=== PATIENT | female | born 1960 | race Caucasian/White ===

== ENCOUNTER 2016-03-19 06:34 | Emergency (ER) | payer BC, OTHER ==
[~2016-03-19] VITALS: Ht 151.1 cm; Wt 98.0 kg
[2016-03-19 06:38] VITALS: TEMP 36.7; O2SAT 96; Ht 151.1 cm; Wt 98.0 kg
[2016-03-19] MEDS ORDERED: LISI-461 PO (06:54)
--- NOTE | 2016-03-19 07:06 | DIAGNOSTIC IMAGING REPORT ---
RIGHT ANKLE 3 VIEWS HISTORY: Right ankle pain. fall Right COMPARISON: None. FINDINGS: There is an oblique fracture within the distal right fibula which demonstrates up to 2 mm of lateral displacement. The ankle mortise remains intact. There is lateral soft tissue swelling. 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 Plantar heel spur. No radiopaque foreign bodies. IMPRESSION: Mildly displaced right distal fibular fracture. Electronically signed by: Giovanny Watt M.D. 03/19/2016 7:05 AM Dictated Date/Time: 03/19/2016 7:04 AM
[2016-03-19] MEDS ORDERED: OXYC1TAB3 PO (07:09)
[2016-03-19 07:40] VITALS: BP 156/83; PULSE 82
--- NOTE | 2016-03-19 15:26 | EMERGENCY ROOM VISIT NOTE ---
History Report prepared by Hernan: Scott Moss Under the Supervision of: Dr. Alan Cheek M.D. First contact with patient: 06:44 Chief Complaint: ANKLE PAIN Stated Complaint: TWISTED RIGHT ANKLE AT WORK History of Present Illness The patient is a 55 year old female who presents to the Emergency Room with complaints of persistent right ankle pain s/p fall earlier this morning. The patient was going down a ramp at work when she slipped and twisted the ankle. The pain is rated 5/10 in severity. She broke the same ankle years ago. She believes that she was treated by [facility]. The patient did not injury any other part of her body during the fall. Patient denies LOC, headache , fevers, chills, diaphoresis, visual changes, neck pain, chest pain, breathing difficulties, nausea, vomiting, abdominal pain, back pain, melena, hematochezia , urinary symptoms, numbness, weakness, lymphadenopathy, rash, or other complaints. Source of History: patient Onset: earlier this morning Position: ankle (right) Symptom Intensity: 5/10 Quality: other (ankle injury s/p fall) Timing: other (persistent) Review of Systems See HPI for pertinent positives and negatives. A total of ten systems were reviewed and were otherwise negative. Past Medical & Surgical Medical Problems: (1) Ankle fracture, right Family History No pertinent family history Social History Smoking Status: Never Smoker Occupation Status: employed Current/Historical Medications Scheduled Lisinopril (Zestril), 10 MG PO DAILY Scheduled PRN Oxycodone Ir (Roxicodone Ir), 1-2 TAB PO Q4H PRN for Pain Allergies Coded Allergies: Naproxen (Verified Allergy, Intermediate, SWELLS UP, 06/05/14) Uncoded Allergies: NAPROXEN (Allergy, Unknown, 05/22/03) Physical Exam Vital Signs Date Time Temp Pulse Resp B/P Pulse Ox O2 Delivery O2 Flow Rate FiO2 03/19/16 07:40 82 156/83 03/19/16 06:38 36.7 88 18 165/87 96 Room Air Physical Exam GENERAL: Awake, alert, well appearing, no acute distress HEAD: Normocephalic, atraumatic. No perez sign. No raccoon eyes. EYES: Normal conjunctiva. PERRL. EARS: External ears normal. Right TM normal. Left TM normal. NOSE: Atraumatic OROPHARYNX: Lips, tongue, and mucosa unremarkable. No erythema or exudate. NECK: Supple. No nuchal rigidity. FROM. No tracheal deviation or JVD. No posterior midline tenderness. No step offs noted. RESPIRATORY: CTA bilaterally CARDIAC: Regular rate, normal rhythm. PELVIS: Stable to rock. SKIN: Normal. LYMPH: No adenopathy. MUSCULOSKELETAL: Upper extremities and left lower extremity are atraumatic. Right lower extremity: swelling and tenderness over the lateral malleolus. No 5th metatarsal tenderness. Foot is atraumatic. NEURO: GCS 15. Normal sensorium. No sensory or motor deficits noted. Medical Decision & Procedures ER Provider Diagnostic Interpretation: X-ray: Per my interpretation, radiologist review. RIGHT ANKLE 3 VIEWS HISTORY: Right ankle pain. fall Right COMPARISON: None. FINDINGS: There is an oblique fracture within the distal right fibula which demonstrates up to 2 mm of lateral displacement. The ankle mortise remains intact. There is lateral soft tissue swelling. 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 Plantar heel spur. No radiopaque foreign bodies. IMPRESSION: Mildly displaced right distal fibular fracture. Electronically signed by: Giovanny Watt M.D. 03/19/2016 7:05 AM Dictated Date/Time: 03/19/2016 7:04 AM ED Course 0702: The patient was evaluated in room A10. A complete history and physical exam was performed. 0710: Discussed the X-ray findings and treatment plan with the patient. She verbalized understanding and agreement. 0725: The patient is ready for discharge. Medical Decision Triage Nursing notes reviewed and agree them. The patient's history was concerning for traumatic injury. Differential diagnosis: Etiologies such as fracture, dislocation, neurovascular compromise, compartment syndrome, soft tissue injury, as well as others were entertained. Physical examination: Consistent with an isolated right ankle injury. ER treatment provided: Patient declined analgesia Fracture boot Icepack On reassessment the patient felt better. Diagnostics interpreted by me: Imaging studies: Xrays as above. The patient has a fracture of the distal fibula. She was placed in fracture boot. She will need to follow-up with orthopedics. By the evaluation outlined above emergent etiologies such as open fracture, dislocation, neurovascular compromise, compartment syndrome, infections, as well as others were deemed relatively unlikely. The patient was informed about the findings as listed above. All questions were answered and she was pleased with the treatment. Return instructions were outlined and the patient was discharged in stable condition. Prescription management: Oxy IR Referral: The patient was referred to [facility] for follow-up care. The chart was completed utilizing [employer] Speech voice recognition software. Grammatical errors, random word insertions, pronoun errors, and incomplete sentences are an occasional consequence of this system due to software limitations, ambient noise, and hardware issues. Any formal questions or concerns about the content, text, or information contained within the body of this dictation should be directly addressed to the physician for clarification. Impression Primary Impression: Ankle fracture, right Scribe Attestation The scribe's documentation has been prepared under my direction and personally reviewed by me in its entirety. I confirm that the note above accurately reflects all work, treatment, procedures, and medical decision making performed by me. Departure Information Dispostion Home / Self-Care Prescriptions Oxycodone Ir (Roxicodone Ir) 5 Mg Tab 1-2 TAB PO Q4H Y for Pain, #15 TAB Prov: Alan Cheek MD 03/19/16 Referrals Oz Solares M.D. (PCP) Forms HOME CARE DOCUMENTATION FORM, IMPORTANT VISIT INFORMATION, Work Instructions Patient Instructions My [facility] Additional Instructions ORTHOPEDIC INSTRUCTIONS: Oxycodone (OxyIR) 5mg: Take 1-2 pills every four hours for breakthrough pain. Avoid alcohol, operating machinery or dangerous equipment, working on ladders or roofs, DRIVING, or situations where being under the influence may be dangerous. It is recommended to use an ezal-aaj-[id number] stool softener such as Colace, 100mg twice daily while taking this medication to avoid constipation. Acetaminophen(Tylenol) may be used for fever or pain. Use 1000mg every six hours as needed. Avoid using more than 4000mg in a 24 hour period. Ice compresses for 20 minutes at a time four times daily for 2-3 days. Use the walking boot as instructed. Rest and elevate your injury. Return to the ER immediately for any numbness, tingling, severe pain, extreme swelling in the extremity or as needed. Call [facility], [phone], today to arrange follow up for your injury.
== END 2016-03-19 07:52 | disposition home or self-care (01) ==
LOC: C.EDB 06:36 → C.EDA 07:52
DX: S82.831A Other fracture of upper and lower end of right fibula, initial encounter for closed fracture (principal); W01.0XXA Fall on same level from slipping, tripping and stumbling without subsequent striking against object, initial encounter; Y99.0 Civilian activity done for income or pay; Z79.899 Other long term (current) drug therapy